=== PATIENT | male | born 1955 | race Caucasian/White ===

== ENCOUNTER 2018-11-30 21:36 | Emergency (ER) | payer BC, MEDICARE ==
[2018-12-01] MEDS ORDERED: Hydrocortisone SUPP* 25 MG SUPP (2.5%) PR ONE (01:32)
--- NOTE | 2018-12-01 01:32 | ED ---
Complex/Multi-Sys Presentation - HPI Summary HPI Summary: This patient is a 63 year old M presenting to [facility] accompanied by his with a chief complaint of anus pain since earlier today. PT states that his anus muscles did not contract. He says he saw that his rectum was protruding outwards. He noticed this after this morning's bowel movement and says he never had this problem before. Pt has hx of hemorrhoids. He notes bleeding from his anus. The patient rates the pain 5/10 in severity. Symptoms aggravated by nothing. Symptoms alleviated by nothing. Pt is not on medications. - History Of Current Complaint Chief Complaint: EDUrogenitalProblems Time Seen by Provider: 12/01/18 01:04 Hx Obtained From: Patient, Family/Manager Communication - Onset/Duration: Sudden Onset, Lasting Hours - began earlier today Timing: Constant Severity Initially: Moderate Aggravating Factor(s): nothing Alleviating Factor(s): nothing Associated Signs And Symptoms: Positive: Other - positive - anus pain, anus muscles did not contract, rectum was protruding outwards, bleeding from anus - Allergies/Home Medications Allergies/Adverse Reactions: Allergies Allergy/AdvReac Type Severity Reaction Status Date / Time No Known Allergies Allergy Verified 11/30/18 21:42 PMH/Surg Hx/FS Hx/Imm Hx Previously Healthy: No Sensory History: Denies: Hx Cataracts, Hx Contacts or Glasses, Hx Vision Problem, Hx Deafness , Hx Hearing Aid Opthamlomology History: Denies: Hx Cataracts, Hx Contacts or Glasses, Hx Legally Blind EENT History: Denies: Hx Deafness, Hx Hearing Problem - Surgical History Surgical History: None Infectious Disease History: No Infectious Disease History: Denies: Traveled Outside the [place] in Last 30 Days - Family History Known Family History: Positive: None - Social History Alcohol Use: None Hx Substance Use: No Substance Use Type: Reports: None Review of Systems Negative: Fever Genitourinary: Other - positive - anus pain, anus muscles did not contract, rectum was protruding outwards, bleeding from anus All Other Systems Reviewed And Are Negative: Yes Physical Exam - Summary Physical Exam Summary: VITAL SIGNS: Reviewed. GENERAL: Patient is a well-developed and nourished MALE who is lying comfortable in the stretcher. Patient is not in any acute respiratory distress. HEAD AND FACE: No signs of trauma. No ecchymosis, hematomas or skull depressions. No sinus tenderness. EYES: PERRLA, EOMI x 2, No injected conjunctiva, no nystagmus. EARS: Hearing grossly intact. Ear canals and tympanic membranes are within normal limits. MOUTH: Oropharynx within normal limits. NECK: Supple, trachea is midline, no adenopathy, no JVD, no carotid bruit, no c- spine tenderness, neck with full ROM CHEST: Symmetric, no tenderness at palpation LUNGS: Clear to auscultation bilaterally. No wheezing or crackles. CVS: Regular rate and rhythm, S1 and S2 present, no murmurs or gallops appreciated. ABDOMEN: Soft, non-tender. No signs of distention. No rebound no guarding, and no masses palpated. Bowel sounds are normal. EXTREMITIES: FROM in all major joints, no edema, no cyanosis or clubbing. NEURO: Alert and oriented x 3. No acute neurological deficits. Speech is normal and follows commands. SKIN: Dry and warm RECTAL: thrombosed hemorrhoids at 2100, prostate mildly enlarged, no suprapubic fullness Triage Information Reviewed: Yes Vital Signs On Initial Exam: Initial Vitals Temp Pulse Resp BP Pulse Ox 99.5 F 96 16 184/108 96 11/30/18 21:39 11/30/18 21:39 11/30/18 21:39 11/30/18 21:39 11/30/18 21:39 Vital Signs Reviewed: Yes Diagnostics - Vital Signs Vital Signs Temp Pulse Resp BP Pulse Ox 11/30/18 23:40 98.7 F 80 16 145/87 98 11/30/18 21:39 99.5 F 96 16 184/108 96 - Laboratory Lab Statement: Any lab studies that have been ordered have been reviewed, and results considered in the medical decision making process. Complex Multi-Symp Course/Dx Course Of Treatment: This patient is a 63 year old M presenting to [facility] accompanied by his with a chief complaint of anus pain since earlier today. PT states that his anus muscles did not contract. He says he saw that his rectum was protruding outwards. He noticed this after this morning's bowel movement and says he never had this problem before. Pt has hx of hemorrhoids. He notes bleeding from his anus. The patient rates the pain 5/10 in severity. Symptoms aggravated by nothing. Symptoms alleviated by nothing. Pt is not on medications. Physical exam shows thrombosed hemorrhoids at 2100, prostate mildly enlarged, no suprapubic fullness. Blood work scan was done by ED copy room technician and was 256 mL. During ED course, pt was given Anusol. Dx is thrombosed hemorrhoids. Pt is agreeable with discharge. Pt wa told to follow up with Dr. Ruiz, surgery, and Dr. Tolentino, gastrology, in 1 day and to return to the ED for any new or worsening symptoms. - Diagnoses Provider Diagnoses: Thrombosed hemorrhoids Discharge - Sign-Out/Discharge Documenting (check all that apply): Patient Departure - discharge Patient Received Moderate/Deep Sedation with Procedure: No - Discharge Plan Condition: Stable Disposition: HOME Prescriptions: Hydrocortisone SUPP* [Anusol HC Supp*] [address] BID #10 supp Patient Education Materials: Thrombosed Hemorrhoid (ED) Referrals: No Primary Care Phys,NOPCP [Primary Care Provider] - Carlos Ruiz MD [Medical Doctor] - 1 Day Jeff Tolentino DO [Doctor of Osteopathy] - 1 Day Additional Instructions: Follow up with Dr. Ruiz, surgery, and Dr. Tolentino, gastrology, in 1 day. Return to the ED for any new or worsening symptoms. - Attestation Statements Document Initiated by Scribe: Yes Documenting Scribe: Devonte Basilio Provider For Whom Pietro is Documenting (Include Credential): Dr. Angel Foley MD Scribe Attestation: IDevonte, scribed for Dr. Angel Foley MD on 12/01/18 at 0634. Status of Scribe Document: Ready
[2018-12-01 03:13] VITALS: BP 151/92
== END 2018-12-01 02:09 | disposition home or self-care (01) ==
LOC: ED 21:36
DX: K64.5 Perianal venous thrombosis (principal); N40.0 Benign prostatic hyperplasia without lower urinary tract symptoms
CPT/HCPCS: 99282; A9270-GY

== ENCOUNTER 2018-12-03 14:45 | Day surgery (SDC) | payer MEDICARE ==
[2018-12-03] MEDS ORDERED: Succinylcholine* 20 MG/ML 10 ML VIAL ONE (16:31)
[2018-12-03] MEDS ORDERED: Dexamethasone IV* 4 MG/ML 1 ML (4 MG) ONE (16:31)
[2018-12-03] MEDS ORDERED: Propofol* 10 MG/ML 20 ML BTL ONE (16:31)
[2018-12-03] MEDS ORDERED: Ondansetron INJ* 2 MG/ML VIAL ONE (16:31)
[2018-12-03] MEDS ORDERED: Lidocaine 2% PF * 5 ML VIAL ONE (16:31)
[2018-12-03] MEDS ORDERED: fentaNYL* 50 MCG/ML 2 ML VIAL (100 MCG VIAL) ONE ×4 (16:32→18:45)
[2018-12-03] MEDS ORDERED: Midazolam* 1 MG/ML 5 ML VIAL (5 MG) ONE (16:33)
--- NOTE | 2018-12-03 16:49 | PN ---
Progress Note - Progress Note Date of Service: 12/03/18 Note: Surgery Progress Note Patient is a 63 yo M sent from clinic by Dr. Ruiz for grade 4 internal hemorrhoids. He said that he started feel pain from his hemorrhoids on Thursday and they have gotten progressively worse. On exam today he clearly has two clusters of firm, tender, grade 4 hemorrhoids that could not be reduced. He has exquisite pain. Informed consent was obtained for an exam under anesthesia , hemorrhoidectomy. He understood risks include but are not limited to bleeding , infection, injury to nearby structures, injury to the anal sphincters that could cause either stenosis or incontinence. He could potentially also have to have repeat surgery in the future. He understands all these things and wishes to proceed.
[2018-12-03] MEDS ORDERED: ceFAZolin 2 GM in NS PREMIX(*) 2 GM/100 ML BAG IVPB ONE (17:18)
[2018-12-03] MEDS ORDERED: Gelfoam Sponge SIZE 100* SPONGE ONE (18:09)
[2018-12-03] MEDS ORDERED: Gelfoam 12-7 ADSORBABL SPONGE* 1 EA SPONGE ONE (18:09)
[2018-12-03] MEDS ORDERED: Lidocaine 1% w EPI 1:200,000* 30 ML VIAL ONE (18:14)
[2018-12-03] MEDS ORDERED: Naloxone* 0.4 MG/ML 1 ML VIAL IV PRN (18:37)
[2018-12-03] MEDS ORDERED: Ondansetron INJ* 2 MG/ML VIAL IV PRN (18:37)
--- NOTE | 2018-12-03 18:44 | OP ---
Operative Report - Blank - Operative Report Date of Operation: 12/03/18 Note: Brief Operative Note Preop Dx: Hemorrhoids Postop Dx: same Procedure: excision hemorrhoids Anesthesia: Gen LMA Surgeon: Philip Wire Puller: MOIZ Cary Fluids: 2100 ml EBL: < 50 ml Specimen: Hemorrhoids (2) Drains: none (gelfoam pack in place) Findings: dictated
[2018-12-03] MEDS: fentaNYL* 50 MCG/ML 2 ML VIAL (100 MCG VIAL) IV PRN ×3 (18:46→19:05)
[2018-12-03] MEDS ORDERED: oxyCODONE/Acetamin 5/325 MG* TAB ONE ×2 (18:50→19:08)
[2018-12-03] MEDS: oxyCODONE/Acetamin 5/325 MG* TAB PO PRN ×2 (18:51→19:09)
[2018-12-03 20:05] VITALS: BP 146/75
--- NOTE | 2018-12-03 22:05 | OP ---
DATE OF OPERATION: 12/03/18 [facility] DATE OF : 51 SERVICE: General Surgery. ATTENDING SURGEON: Ольга Palacios MD ASSISTANTS: Dr. Wicho Singh and MOIZ Reyes ANESTHESIOLOGIST: Dr. Michel Nuñez. ANESTHESIA: General anesthesia PRE-OP DIAGNOSIS: Grade 4 internal hemorrhoid. POST-OP DIAGNOSIS: Grade 4 internal hemorrhoid. OPERATIVE PROCEDURE: Exam under anesthesia, hemorrhoidectomy. ESTIMATED BLOOD LOSS: Minimal, less than 10 cc. INDICATIONS FOR PROCEDURE: Mr. Ayon is a 63-year-old gentleman with no significant past medical history who had presented to the office this afternoon and was evaluated by Dr. Ruiz with complaints of having approximately 4 days of painful hemorrhoids. Under office examination, Dr. Ruiz determined that he had a grade 4 internal hernia that required urgent operative intervention. Furthermore, he was unable to be fully examined given his exquisite tenderness. He understood the risks, benefits, and alternatives to the procedure and wished to proceed. DESCRIPTION OF PROCEDURE: The patient was brought back to the operating room and placed on the operating table in supine position. Sequential compression devices were placed in the bilateral lower extremities for DVT prophylaxis. LMA general anesthesia was induced by the anesthesiologist and then the patient was placed in the lithotomy position. All his pressure points were padded and then his perineum was prepped and draped in normal sterile fashion. Prior to beginning the surgery, a time-out was performed to verify the patient's name, MR number, and the procedure to be performed. Next, an external anal exam was performed. There were two perianal, firm masses with superficial ulceration. Digital rectal exam did not identify any distinct masses in the rectal vault but there was copious amount of stool that was evacuated. An anoscope was placed into the rectum and multiple large internal hemorrhoids were identified at the anterior midline position and the right posterior midline position. The left posterior midline position was the location of the strangulated internal hemorrhoid. It was noted to be contiguous with an area of likely external thrombosed hemorrhoid versus edematous, indurated perianal skin. The two perianal masses identified on initial external anal exam was found to be this large combined internal-external hemorrhoidal complex. Therefore, the decision was made to perform a hemorrhoidectomy of the grade 4 internal hemorrhoid at the left posterior midline. The LigaSure was used to divide the hemorrhoidal tissue from the edematous perianal skin and above the spinchter muscles. Then the hemorrhoidectomy specimen was then carried off for pathology. A Hemostasis was obtained at this area. There is also a small hemorrhoid that was located very near by at the posterior right midline position and this was also taken with LigaSure and also sent as specimen. Hemostasis was obtained in the anal canal and a Surgicel was moistened and rolled up and placed into the anal canal for hemoastasis. At the end of the case, the patient's anesthesia was reversed. All counts were correct and prior to completing the case, 1% lidocaine with epinephrine was also administered to the perianal area for local anesthesia. At the end of the case, all counts were correct and I was present during the entirety of the case. [id number] #: [id number] MTDD
== END 2018-12-03 20:36 | disposition home or self-care (01) ==
LOC: OR 14:45
PROVIDERS: ATTEND Surgery
DX: K64.3 Fourth degree hemorrhoids (principal); M19.90 Unspecified osteoarthritis, unspecified site; Z87.891 Personal history of nicotine dependence
CPT/HCPCS: 88304; A9270-GY; J0330; J0690; J1100; J2001; J2250; J2405; J2704; J3010